=== PATIENT | male | born 1975 | race Caucasian/White ===

== ENCOUNTER 2022-09-05 11:43 | Emergency (ER) | payer MEDICAID ==
[2022-09-05 12:43] LABS: CHLORIDE,CL 106 mmol/L (98-107); SODIUM,NA 142 mmol/L (136-145)
[2022-09-05] MEDS: Ketorolac 30 MG/ML SDV IM ONE (12:46)
[2022-09-05 12:50] LABS: ANION GAP 15.6 mmol/L (5-15); ESTIMATED GFR 110 mL/min (>=60)
== END 2022-09-05 13:27 | disposition home or self-care (01) ==
LOC: VM.ED 11:43
DX: S29.012A Strain of muscle and tendon of back wall of thorax, initial encounter (principal); Z72.0 Tobacco use; Z88.5 Allergy status to narcotic agent; X58.XXXA Exposure to other specified factors, initial encounter
CPT/HCPCS: 36415; 72125; 72128; 80053; 80307; 83735; 84100; 85025; 96372; 99283; 99284; J1885; J3360

== ENCOUNTER 2023-03-13 15:27 | Emergency (ER) | payer MEDICAID ==
[2023-03-13] MEDS ORDERED: Ketorolac 30 MG/ML SDV IM ONE (15:41)
[2023-03-13] MEDS ORDERED: Orphenadrine 60 MG/2 ML Inj IM ONE (15:41)
== END 2023-03-13 16:45 | disposition home or self-care (01) ==
LOC: VM.ED 15:27 → SUPCPDRO 15:27 → VM.ED 16:45
DX: M62.830 Muscle spasm of back (principal); Z88.5 Allergy status to narcotic agent
CPT/HCPCS: 96372; 99283; 99284; J1885; J2360

== ENCOUNTER 2023-03-14 14:44 | Emergency (ER) | payer MEDICAID ==
[2023-03-14] MEDS ORDERED: Ketorolac 30 MG/ML SDV IM ONE (14:54)
[2023-03-14] MEDS ORDERED: Orphenadrine 60 MG/2 ML Inj IM ONE (14:54)
[2023-03-14 17:57] LABS: APPEARANCE,URINE CLEAR (CLEAR); BILIRUBIN,URINE NEGATIVE (NEGATIVE); COLOR,URINE YELLOW (YELLOW); GLUCOSE,URINE NEGATIVE (NEGATIVE); KETONES,URINE NEGATIVE (NEGATIVE); LEUKOCYTE ESTERASE,URINE SMALL (NEGATIVE); NITRITE,URINE NEGATIVE (NEGATIVE); OCCULT BLOOD,URINE NEGATIVE (NEGATIVE); PROTEIN,URINE NEGATIVE (NEGATIVE); UROBILINOGEN,URINE 0.2 EU/dL (0.2)
[2023-03-14 18:01] LABS: AMPHETAMINES SCREEN, URINE POSITIVE (NEGATIVE); BARBITURATE SCREEN,URINE NEGATIVE (NEGATIVE); BENZODIAZEPINES SCREEN,URINE NEGATIVE (NEGATIVE); BUPRENORPHINE SCREEN,URINE NEGATIVE (NEGATIVE); COCAINE METABOLITES,URINE NEGATIVE (NEGATIVE); METHADONE SCREEN, URINE NEGATIVE (NEGATIVE); METHAMPHETAMINE SCREEN, URINE POSITIVE (NEGATIVE); OXYCODONE SCREEN,URINE NEGATIVE (NEGATIVE); PCP SCREEN,URINE NEGATIVE (NEGATIVE); THC SCREEN,URINE 50 NG/ML POSITIVE (NEGATIVE)
[2023-03-14 18:04] LABS: RBC,URINE 0-5 /HPF (NOT SEEN)
[2023-03-14 18:05] LABS: BACTERIA,URINE RARE /HPF (NOT SEEN); MUCUS,URINE FEW /LPF (NOT SEEN)
== END 2023-03-14 18:14 | disposition home or self-care (01) ==
LOC: VM.ED 14:44
DX: M62.830 Muscle spasm of back (principal); Z72.0 Tobacco use
CPT/HCPCS: 72072; 80305-QW; 81001; 87086; 96372; 99283; 99284; J1885; J2360; J3360

== ENCOUNTER 2023-03-17 03:55 | Emergency (ER) | payer MEDICAID ==
[2023-03-17] MEDS ORDERED: Sodium Chloride 0.9% 10 ML Syringe FLUSH PRN (04:07)
[2023-03-17] MEDS ORDERED: Ketamine 200 MG/20 ML MDV IM ONE (04:07)
[2023-03-17] MEDS ORDERED: Ketorolac 15 MG/ML SDV IVPUSH ONE (04:18)
[2023-03-17] MEDS ORDERED: Ketamine 200 MG/20 ML MDV IVPUSH ONE ×3 (06:53→07:02)
== END 2023-03-17 07:09 | disposition home or self-care (01) ==
LOC: VM.ED 03:55
DX: M43.6 Torticollis (principal); M54.2 Cervicalgia; G89.29 Other chronic pain; F17.210 Nicotine dependence, cigarettes, uncomplicated; Z79.899 Other long term (current) drug therapy; Z88.5 Allergy status to narcotic agent
CPT/HCPCS: 72125; 96374; 96375; 96376; 99283-25; 99284; J1885; J3490

== ENCOUNTER 2023-03-18 04:30 | Emergency (ER) | payer MEDICAID ==
[2023-03-18] MEDS ORDERED: Ketorolac 30 MG/ML SDV IM ONE (05:29)
== END 2023-03-18 07:50 | disposition home or self-care (01) ==
LOC: SUPCPDRO 04:30 → VM.ED 04:30
DX: R33.9 Retention of urine, unspecified (principal); Z88.5 Allergy status to narcotic agent; Z72.0 Tobacco use
CPT/HCPCS: 51702; 96372; 99283; 99284; J1885; J3360

== ENCOUNTER 2023-03-29 14:46 | Inpatient (IN) | payer MEDICAID ==
[2023-03-29] MEDS ORDERED: Cyclobenzaprine 10 MG Tab PO PRN (20:47)
[2023-03-29] MEDS ORDERED: Lidocaine 2% HCl 11 ML Jelly Filled Syringe TOP PRN (20:47)
[2023-03-29] MEDS ORDERED: Albuterol HFA 18 Gm Inhaler INH PRN (20:47)
[2023-03-29] MEDS ORDERED: Mupirocin Oint 22 GM Tube TOP SCH (21:00)
[2023-03-29] MEDS ORDERED: Acetaminophen 325 MG Tab PO SCH ×2 (21:00)
[2023-03-29] MEDS ORDERED: traMADol 50 MG Tab PO SCH (21:00)
[2023-03-29] MEDS ORDERED: Magnesium Hydroxide 400 MG/5 ML Susp 30 ML Cup PO PRN (21:25)
[2023-03-29] MEDS ORDERED: Docusate Sodium 100 MG Cap PO PRN (21:25)
[2023-03-29] MEDS ORDERED: Ondansetron 4 MG Tab.DIS PO PRN (21:25)
[2023-03-29] MEDS: Cyclobenzaprine 10 MG Tab PO SCH (21:35)
[2023-03-29] MEDS ORDERED: Mupirocin Oint 22 GM Tube TOP PRN (21:46)
[2023-03-29] MEDS: ceFAZolin 2 GM in Water For Injection, Sterile 20 ML IVPUSH SCH (22:50)
[2023-03-29] MEDS: traMADol 50 MG Tab PO SCH (23:00)
[2023-03-29] MEDS: Acetaminophen 500 MG Tab PO SCH (23:02)
[2023-03-29] MEDS: Heparin Sodium 100 Units/ML 3 ML Syringe IVPUSH SCH (23:05)
[2023-03-30] MEDS: oxyCODONE 5 MG Tab PO PRN ×2 (00:27→07:00)
[2023-03-30] MEDS ORDERED: Non-Formulary Medication 1 Each (Cefazolin [Ancef] 2 GM/50 ML Bag) IV SCH (01:00)
[2023-03-30] MEDS: Acetaminophen 500 MG Tab PO SCH ×4 (05:30→17:39)
[2023-03-30] MEDS: traMADol 50 MG Tab PO SCH ×3 (05:32→17:42)
[2023-03-30] MEDS: ceFAZolin 2 GM in Water For Injection, Sterile 20 ML IVPUSH SCH (05:35)
[2023-03-30] MEDS: DULoxetine 30 MG Cap PO SCH (09:35)
[2023-03-30] MEDS: Pantoprazole 40 MG Tab.CR PO SCH (09:36)
[2023-03-30] MEDS: Tamsulosin 0.4 MG Cap.ER PO SCH (09:36)
[2023-03-30] MEDS: Cyclobenzaprine 10 MG Tab PO SCH ×3 (09:37→21:21)
[2023-03-30] MEDS: Heparin Sodium 100 Units/ML 3 ML Syringe IVPUSH SCH ×2 (09:40→21:22)
[2023-03-30] MEDS: hydrOXYzine HCl 25 MG Tab PO PRN (10:33)
[2023-03-30] MEDS: ceFAZolin 2 GM Vial IVPUSH SCH ×2 (12:56→21:23)
[2023-03-31] MEDS: traMADol 50 MG Tab PO SCH ×5 (00:16→23:50)
[2023-03-31] MEDS: Acetaminophen 500 MG Tab PO SCH ×5 (00:16→23:50)
[2023-03-31] MEDS: ceFAZolin 2 GM Vial IVPUSH SCH ×3 (05:26→21:21)
[2023-03-31] MEDS: Heparin Sodium 100 Units/ML 3 ML Syringe IVPUSH PRN (05:43)
[2023-03-31] MEDS: Cyclobenzaprine 10 MG Tab PO SCH ×3 (09:30→21:22)
[2023-03-31] MEDS: DULoxetine 30 MG Cap PO SCH (09:30)
[2023-03-31] MEDS: Pantoprazole 40 MG Tab.CR PO SCH (09:30)
[2023-03-31] MEDS: Tamsulosin 0.4 MG Cap.ER PO SCH (09:30)
[2023-03-31] MEDS: Heparin Sodium 100 Units/ML 3 ML Syringe IVPUSH SCH ×3 (09:31→21:22)
[2023-03-31] MEDS: Mupirocin Oint 22 GM Tube TOP PRN (21:40)
[2023-04-01] MEDS: traMADol 50 MG Tab PO SCH ×3 (05:33→17:48)
[2023-04-01] MEDS: Acetaminophen 500 MG Tab PO SCH ×3 (05:34→17:47)
[2023-04-01] MEDS: ceFAZolin 2 GM Vial IVPUSH SCH ×3 (05:34→21:17)
[2023-04-01] MEDS: Heparin Sodium 100 Units/ML 3 ML Syringe IVPUSH SCH ×3 (05:34→21:17)
[2023-04-01] MEDS: Cyclobenzaprine 10 MG Tab PO SCH ×3 (08:44→21:14)
[2023-04-01] MEDS: Tamsulosin 0.4 MG Cap.ER PO SCH (08:45)
[2023-04-01] MEDS: Pantoprazole 40 MG Tab.CR PO SCH (08:45)
[2023-04-01] MEDS: DULoxetine 30 MG Cap PO SCH (08:46)
[2023-04-02] MEDS: traMADol 50 MG Tab PO SCH ×4 (00:11→17:44)
[2023-04-02] MEDS: Acetaminophen 500 MG Tab PO SCH ×4 (00:11→17:45)
[2023-04-02] MEDS: Sodium Chloride 0.9% 10 ML Syringe FLUSH SCH ×3 (05:32→20:58)
[2023-04-02] MEDS: Heparin Sodium 100 Units/ML 3 ML Syringe IVPUSH SCH ×3 (05:32→20:59)
[2023-04-02] MEDS: ceFAZolin 2 GM Vial IVPUSH SCH ×3 (05:32→20:59)
[2023-04-02] MEDS: Cyclobenzaprine 10 MG Tab PO SCH ×3 (08:58→20:57)
[2023-04-02] MEDS: DULoxetine 30 MG Cap PO SCH (08:58)
[2023-04-02] MEDS: Pantoprazole 40 MG Tab.CR PO SCH (08:58)
[2023-04-02] MEDS: Tamsulosin 0.4 MG Cap.ER PO SCH (08:58)
[2023-04-02] MEDS: hydrOXYzine HCl 25 MG Tab PO PRN (09:03)
[2023-04-03] MEDS: traMADol 50 MG Tab PO SCH ×5 (00:19→23:26)
[2023-04-03] MEDS: Acetaminophen 500 MG Tab PO SCH ×5 (00:19→23:28)
[2023-04-03] MEDS: Heparin Sodium 100 Units/ML 3 ML Syringe IVPUSH SCH ×3 (05:34→21:07)
[2023-04-03] MEDS: ceFAZolin 2 GM Vial IVPUSH SCH ×3 (05:34→21:06)
[2023-04-03] MEDS: Sodium Chloride 0.9% 10 ML Syringe FLUSH SCH ×3 (05:35→21:07)
[2023-04-03 07:19] LABS: HEMATOCRIT 38.4 % (40.0-52.0); HEMOGLOBIN 12.9 g/dL (14.0-18.0); MEAN CORPUSCULAR HEMOGLOBIN 31.5 pg (26.0-32.0); MEAN CORPUSCULAR HGB CONC 33.6 g/dL (32.0-36.0); MEAN CORPUSCULAR VOLUME 93.9 fL (78.0-93.0); RED BLOOD CELL COUNT 4.09 x10^6/uL (4.5-6.0); WHITE BLOOD CELL COUNT,WBC 7.4 x10^3/uL (4.0-10.0)
[2023-04-03 07:40] LABS: C-REACTIVE PROTEIN 0.73 mg/dL (<=0.30); CREATININE 0.9 mg/dL (0.70-1.30); EST CRCL DRUG DOSING (CG) 111.37 mL/min
[2023-04-03] MEDS: DULoxetine 30 MG Cap PO SCH (08:26)
[2023-04-03] MEDS: Pantoprazole 40 MG Tab.CR PO SCH (08:26)
[2023-04-03] MEDS: Cyclobenzaprine 10 MG Tab PO SCH ×3 (08:27→21:06)
[2023-04-03] MEDS: Tamsulosin 0.4 MG Cap.ER PO SCH (08:30)
[2023-04-04] MEDS: Acetaminophen 500 MG Tab PO SCH ×4 (05:34→23:22)
[2023-04-04] MEDS: Heparin Sodium 100 Units/ML 3 ML Syringe IVPUSH SCH ×3 (05:34→21:09)
[2023-04-04] MEDS: traMADol 50 MG Tab PO SCH ×4 (05:34→23:22)
[2023-04-04] MEDS: Sodium Chloride 0.9% 10 ML Syringe FLUSH SCH ×3 (05:35→21:10)
[2023-04-04] MEDS: ceFAZolin 2 GM Vial IVPUSH SCH ×3 (05:35→21:09)
[2023-04-04] MEDS: Pantoprazole 40 MG Tab.CR PO SCH (09:00)
[2023-04-04] MEDS: Tamsulosin 0.4 MG Cap.ER PO SCH (09:00)
[2023-04-04] MEDS: DULoxetine 30 MG Cap PO SCH (09:00)
[2023-04-04] MEDS: Cyclobenzaprine 10 MG Tab PO SCH ×3 (09:00→21:09)
[2023-04-04] MEDS: oxyCODONE 5 MG Tab PO PRN (21:42)
[2023-04-05] MEDS: Sodium Chloride 0.9% 10 ML Syringe FLUSH SCH ×3 (05:41→20:56)
[2023-04-05] MEDS: ceFAZolin 2 GM Vial IVPUSH SCH ×3 (05:42→20:46)
[2023-04-05] MEDS: Acetaminophen 500 MG Tab PO SCH ×3 (05:42→17:40)
[2023-04-05] MEDS: traMADol 50 MG Tab PO SCH ×3 (05:42→17:40)
[2023-04-05] MEDS: Heparin Sodium 100 Units/ML 3 ML Syringe IVPUSH SCH ×3 (05:42→20:47)
[2023-04-05] MEDS: Tamsulosin 0.4 MG Cap.ER PO SCH ×2 (08:50→08:53)
[2023-04-05] MEDS: Pantoprazole 40 MG Tab.CR PO SCH (08:50)
[2023-04-05] MEDS: DULoxetine 30 MG Cap PO SCH (08:50)
[2023-04-05] MEDS: Cyclobenzaprine 10 MG Tab PO SCH ×3 (08:50→20:46)
[2023-04-06] MEDS: traMADol 50 MG Tab PO SCH ×5 (00:20→23:31)
[2023-04-06] MEDS: Acetaminophen 500 MG Tab PO SCH ×5 (00:20→23:30)
[2023-04-06] MEDS: ceFAZolin 2 GM Vial IVPUSH SCH ×3 (05:25→21:09)
[2023-04-06] MEDS: Heparin Sodium 100 Units/ML 3 ML Syringe IVPUSH SCH ×3 (05:26→21:10)
[2023-04-06] MEDS: Sodium Chloride 0.9% 10 ML Syringe FLUSH SCH ×3 (05:27→21:10)
[2023-04-06] MEDS: Pantoprazole 40 MG Tab.CR PO SCH (08:40)
[2023-04-06] MEDS: Tamsulosin 0.4 MG Cap.ER PO SCH (08:40)
[2023-04-06] MEDS: DULoxetine 30 MG Cap PO SCH (08:40)
[2023-04-06] MEDS: Cyclobenzaprine 10 MG Tab PO SCH ×3 (08:40→21:09)
[2023-04-07] MEDS: Acetaminophen 500 MG Tab PO SCH ×4 (05:24→23:27)
[2023-04-07] MEDS: Sodium Chloride 0.9% 10 ML Syringe FLUSH SCH ×3 (05:25→20:49)
[2023-04-07] MEDS: ceFAZolin 2 GM Vial IVPUSH SCH ×3 (05:25→20:43)
[2023-04-07] MEDS: Heparin Sodium 100 Units/ML 3 ML Syringe IVPUSH SCH ×3 (05:25→20:51)
[2023-04-07] MEDS: traMADol 50 MG Tab PO SCH ×4 (05:25→23:29)
[2023-04-07] MEDS: DULoxetine 30 MG Cap PO SCH (08:28)
[2023-04-07] MEDS: Cyclobenzaprine 10 MG Tab PO SCH ×3 (08:28→20:40)
[2023-04-07] MEDS: Tamsulosin 0.4 MG Cap.ER PO SCH (08:28)
[2023-04-07] MEDS: Pantoprazole 40 MG Tab.CR PO SCH (08:28)
[2023-04-07] MEDS: hydrOXYzine HCl 25 MG Tab PO PRN (08:32)
[2023-04-08] MEDS: Acetaminophen 500 MG Tab PO SCH ×4 (05:38→23:02)
[2023-04-08] MEDS: traMADol 50 MG Tab PO SCH ×4 (05:40→23:03)
[2023-04-08] MEDS: ceFAZolin 2 GM Vial IVPUSH SCH ×3 (05:41→20:52)
[2023-04-08] MEDS: Sodium Chloride 0.9% 10 ML Syringe FLUSH SCH ×3 (05:42→20:51)
[2023-04-08] MEDS: Heparin Sodium 100 Units/ML 3 ML Syringe IVPUSH SCH ×3 (05:49→20:58)
[2023-04-08] MEDS: Cyclobenzaprine 10 MG Tab PO SCH ×3 (09:02→20:49)
[2023-04-08] MEDS: Tamsulosin 0.4 MG Cap.ER PO SCH (09:02)
[2023-04-08] MEDS: DULoxetine 30 MG Cap PO SCH (09:03)
[2023-04-08] MEDS: Pantoprazole 40 MG Tab.CR PO SCH (09:03)
[2023-04-09] MEDS: traMADol 50 MG Tab PO SCH ×4 (05:49→23:55)
[2023-04-09] MEDS: Acetaminophen 500 MG Tab PO SCH ×4 (05:50→23:54)
[2023-04-09] MEDS: Sodium Chloride 0.9% 10 ML Syringe FLUSH SCH ×3 (05:51→21:46)
[2023-04-09] MEDS: ceFAZolin 2 GM Vial IVPUSH SCH ×3 (05:51→21:45)
[2023-04-09] MEDS: Heparin Sodium 100 Units/ML 3 ML Syringe IVPUSH SCH ×3 (05:51→21:45)
[2023-04-09] MEDS: DULoxetine 30 MG Cap PO SCH (08:06)
[2023-04-09] MEDS: Tamsulosin 0.4 MG Cap.ER PO SCH (08:07)
[2023-04-09] MEDS: Pantoprazole 40 MG Tab.CR PO SCH (08:07)
[2023-04-09] MEDS: Cyclobenzaprine 10 MG Tab PO SCH ×3 (08:08→21:45)
[2023-04-10] MEDS: Acetaminophen 500 MG Tab PO SCH ×3 (05:17→17:31)
[2023-04-10] MEDS: Heparin Sodium 100 Units/ML 3 ML Syringe IVPUSH SCH ×3 (05:17→20:23)
[2023-04-10] MEDS: ceFAZolin 2 GM Vial IVPUSH SCH ×3 (05:17→20:18)
[2023-04-10] MEDS: traMADol 50 MG Tab PO SCH ×3 (05:18→17:33)
[2023-04-10] MEDS: Sodium Chloride 0.9% 10 ML Syringe FLUSH SCH ×3 (05:18→20:18)
[2023-04-10] MEDS: Pantoprazole 40 MG Tab.CR PO SCH (08:19)
[2023-04-10] MEDS: Tamsulosin 0.4 MG Cap.ER PO SCH (08:19)
[2023-04-10] MEDS: Cyclobenzaprine 10 MG Tab PO SCH ×3 (08:20→20:25)
[2023-04-10] MEDS: DULoxetine 30 MG Cap PO SCH (08:20)
[2023-04-10 09:29] LABS: HEMATOCRIT 37.5 % (40.0-52.0); HEMOGLOBIN 12.5 g/dL (14.0-18.0); MEAN CORPUSCULAR HEMOGLOBIN 31.4 pg (26.0-32.0); MEAN CORPUSCULAR HGB CONC 33.3 g/dL (32.0-36.0); MEAN CORPUSCULAR VOLUME 94.2 fL (78.0-93.0); RED BLOOD CELL COUNT 3.98 x10^6/uL (4.5-6.0); WHITE BLOOD CELL COUNT,WBC 6.8 x10^3/uL (4.0-10.0)
[2023-04-10 09:45] LABS: C-REACTIVE PROTEIN 0.34 mg/dL (<=0.30); CREATININE 0.8 mg/dL (0.70-1.30); EST CRCL DRUG DOSING (CG) 125.29 mL/min
[2023-04-11] MEDS: Acetaminophen 500 MG Tab PO SCH ×4 (00:13→17:29)
[2023-04-11] MEDS: traMADol 50 MG Tab PO SCH ×4 (00:13→17:29)
[2023-04-11] MEDS: ceFAZolin 2 GM Vial IVPUSH SCH ×3 (05:43→21:29)
[2023-04-11] MEDS: Sodium Chloride 0.9% 10 ML Syringe FLUSH SCH ×3 (05:43→21:28)
[2023-04-11] MEDS: Heparin Sodium 100 Units/ML 3 ML Syringe IVPUSH SCH ×3 (05:49→21:34)
[2023-04-11] MEDS: Tamsulosin 0.4 MG Cap.ER PO SCH (08:37)
[2023-04-11] MEDS: DULoxetine 30 MG Cap PO SCH (08:37)
[2023-04-11] MEDS: Cyclobenzaprine 10 MG Tab PO SCH ×3 (08:37→21:25)
[2023-04-11] MEDS: Pantoprazole 40 MG Tab.CR PO SCH (08:37)
[2023-04-12] MEDS: Acetaminophen 500 MG Tab PO SCH ×4 (00:02→17:48)
[2023-04-12] MEDS: traMADol 50 MG Tab PO SCH ×4 (00:03→17:47)
[2023-04-12] MEDS: Sodium Chloride 0.9% 10 ML Syringe FLUSH SCH ×3 (05:39→20:45)
[2023-04-12] MEDS: ceFAZolin 2 GM Vial IVPUSH SCH ×3 (05:40→20:44)
[2023-04-12] MEDS: Heparin Sodium 100 Units/ML 3 ML Syringe IVPUSH SCH ×3 (05:47→20:50)
[2023-04-12] MEDS: Pantoprazole 40 MG Tab.CR PO SCH (08:45)
[2023-04-12] MEDS: DULoxetine 30 MG Cap PO SCH (08:45)
[2023-04-12] MEDS: Cyclobenzaprine 10 MG Tab PO SCH ×3 (08:45→20:43)
[2023-04-12] MEDS: Tamsulosin 0.4 MG Cap.ER PO SCH (08:45)
[2023-04-12 19:09] LABS: AMPHETAMINES SCREEN, URINE NEGATIVE (NEGATIVE); BARBITURATE SCREEN,URINE NEGATIVE (NEGATIVE)
[2023-04-12 19:10] LABS: BENZODIAZEPINES SCREEN,URINE NEGATIVE (NEGATIVE); BUPRENORPHINE SCREEN,URINE NEGATIVE (NEGATIVE); COCAINE METABOLITES,URINE NEGATIVE (NEGATIVE); METHADONE SCREEN, URINE NEGATIVE (NEGATIVE); METHAMPHETAMINE SCREEN, URINE NEGATIVE (NEGATIVE); OXYCODONE SCREEN,URINE NEGATIVE (NEGATIVE); PCP SCREEN,URINE NEGATIVE (NEGATIVE); THC SCREEN,URINE 50 NG/ML POSITIVE (NEGATIVE)
[2023-04-12] MEDS: hydrOXYzine HCl 25 MG Tab PO PRN (20:44)
[2023-04-12] MEDS: Mupirocin Oint 22 GM Tube TOP PRN (20:56)
[2023-04-13] MEDS: traMADol 50 MG Tab PO SCH ×4 (00:32→17:59)
[2023-04-13] MEDS: Acetaminophen 500 MG Tab PO SCH ×4 (00:32→17:59)
[2023-04-13] MEDS: ceFAZolin 2 GM Vial IVPUSH SCH ×3 (05:42→21:52)
[2023-04-13] MEDS: Heparin Sodium 100 Units/ML 3 ML Syringe IVPUSH SCH ×3 (05:46→21:52)
[2023-04-13] MEDS: Sodium Chloride 0.9% 10 ML Syringe FLUSH SCH ×4 (05:46→21:53)
[2023-04-13] MEDS: Pantoprazole 40 MG Tab.CR PO SCH (08:14)
[2023-04-13] MEDS: Cyclobenzaprine 10 MG Tab PO SCH ×3 (08:14→21:50)
[2023-04-13] MEDS: DULoxetine 30 MG Cap PO SCH (08:14)
[2023-04-13] MEDS: Tamsulosin 0.4 MG Cap.ER PO SCH (08:14)
[2023-04-14] MEDS: traMADol 50 MG Tab PO SCH ×5 (01:16→23:22)
[2023-04-14] MEDS: Acetaminophen 500 MG Tab PO SCH ×5 (01:16→23:22)
[2023-04-14] MEDS: ceFAZolin 2 GM Vial IVPUSH SCH ×3 (05:46→21:13)
[2023-04-14] MEDS: Sodium Chloride 0.9% 10 ML Syringe FLUSH SCH ×3 (05:46→21:14)
[2023-04-14] MEDS: Heparin Sodium 100 Units/ML 3 ML Syringe IVPUSH SCH ×3 (05:47→21:14)
[2023-04-14] MEDS: Pantoprazole 40 MG Tab.CR PO SCH (08:14)
[2023-04-14] MEDS: DULoxetine 30 MG Cap PO SCH (08:14)
[2023-04-14] MEDS: Cyclobenzaprine 10 MG Tab PO SCH ×3 (08:14→21:13)
[2023-04-14] MEDS: Tamsulosin 0.4 MG Cap.ER PO SCH (08:14)
[2023-04-14] MEDS: Mupirocin Oint 22 GM Tube TOP PRN (08:16)
[2023-04-15] MEDS: ceFAZolin 2 GM Vial IVPUSH SCH ×3 (05:31→21:07)
[2023-04-15] MEDS: Sodium Chloride 0.9% 10 ML Syringe FLUSH SCH ×3 (05:31→21:08)
[2023-04-15] MEDS: Acetaminophen 500 MG Tab PO SCH ×4 (05:32→23:52)
[2023-04-15] MEDS: Heparin Sodium 100 Units/ML 3 ML Syringe IVPUSH SCH ×3 (05:32→21:07)
[2023-04-15] MEDS: traMADol 50 MG Tab PO SCH ×4 (05:32→23:50)
[2023-04-15] MEDS: Tamsulosin 0.4 MG Cap.ER PO SCH (09:07)
[2023-04-15] MEDS: Cyclobenzaprine 10 MG Tab PO SCH ×3 (09:07→21:08)
[2023-04-15] MEDS: DULoxetine 30 MG Cap PO SCH (09:08)
[2023-04-15] MEDS: Pantoprazole 40 MG Tab.CR PO SCH (09:08)
[2023-04-16] MEDS: ceFAZolin 2 GM Vial IVPUSH SCH ×3 (05:56→21:00)
[2023-04-16] MEDS: Acetaminophen 500 MG Tab PO SCH ×4 (05:56→23:53)
[2023-04-16] MEDS: Heparin Sodium 100 Units/ML 3 ML Syringe IVPUSH SCH ×3 (05:56→20:49)
[2023-04-16] MEDS: traMADol 50 MG Tab PO SCH ×4 (05:57→23:53)
[2023-04-16] MEDS: Sodium Chloride 0.9% 10 ML Syringe FLUSH SCH ×3 (05:58→20:50)
[2023-04-16] MEDS: Sodium Chloride 0.9% 10 ML Syringe FLUSH PRN ×2 (06:06→12:42)
[2023-04-16] MEDS: Cyclobenzaprine 10 MG Tab PO SCH ×3 (08:51→20:49)
[2023-04-16] MEDS: DULoxetine 30 MG Cap PO SCH (08:51)
[2023-04-16] MEDS: Tamsulosin 0.4 MG Cap.ER PO SCH (08:51)
[2023-04-16] MEDS: Pantoprazole 40 MG Tab.CR PO SCH (08:51)
[2023-04-17] MEDS: Acetaminophen 500 MG Tab PO SCH ×4 (05:59→23:02)
[2023-04-17] MEDS: traMADol 50 MG Tab PO SCH ×4 (06:00→23:02)
[2023-04-17] MEDS: ceFAZolin 2 GM Vial IVPUSH SCH ×3 (06:01→21:37)
[2023-04-17] MEDS: Heparin Sodium 100 Units/ML 3 ML Syringe IVPUSH SCH ×3 (06:01→21:37)
[2023-04-17] MEDS: Sodium Chloride 0.9% 10 ML Syringe FLUSH SCH ×3 (06:01→21:37)
[2023-04-17 07:04] LABS: HEMATOCRIT 42.4 % (40.0-52.0); HEMOGLOBIN 13.6 g/dL (14.0-18.0); MEAN CORPUSCULAR HEMOGLOBIN 30.2 pg (26.0-32.0); MEAN CORPUSCULAR HGB CONC 32.1 g/dL (32.0-36.0); MEAN CORPUSCULAR VOLUME 94.2 fL (78.0-93.0); RED BLOOD CELL COUNT 4.5 x10^6/uL (4.5-6.0); WHITE BLOOD CELL COUNT,WBC 5.2 x10^3/uL (4.0-10.0)
[2023-04-17 07:27] LABS: C-REACTIVE PROTEIN 0.32 mg/dL (<=0.30); CREATININE 0.9 mg/dL (0.70-1.30); EST CRCL DRUG DOSING (CG) 111.37 mL/min
[2023-04-17] MEDS: Pantoprazole 40 MG Tab.CR PO SCH (08:38)
[2023-04-17] MEDS: Cyclobenzaprine 10 MG Tab PO SCH ×3 (08:38→21:35)
[2023-04-17] MEDS: DULoxetine 30 MG Cap PO SCH (08:38)
[2023-04-17] MEDS: Tamsulosin 0.4 MG Cap.ER PO SCH (09:46)
[2023-04-17] MEDS: Sodium Chloride 0.9% 10 ML Syringe FLUSH PRN (21:39)
[2023-04-18] MEDS: traMADol 50 MG Tab PO SCH ×3 (05:57→18:30)
[2023-04-18] MEDS: Acetaminophen 500 MG Tab PO SCH ×3 (05:57→18:29)
[2023-04-18] MEDS: Heparin Sodium 100 Units/ML 3 ML Syringe IVPUSH SCH ×3 (05:58→21:12)
[2023-04-18] MEDS: Sodium Chloride 0.9% 10 ML Syringe FLUSH SCH ×3 (05:58→21:13)
[2023-04-18] MEDS: ceFAZolin 2 GM Vial IVPUSH SCH ×3 (05:58→21:11)
[2023-04-18] MEDS: Cyclobenzaprine 10 MG Tab PO SCH ×3 (08:11→21:11)
[2023-04-18] MEDS: Pantoprazole 40 MG Tab.CR PO SCH (08:12)
[2023-04-18] MEDS: Tamsulosin 0.4 MG Cap.ER PO SCH (08:12)
[2023-04-18] MEDS: DULoxetine 30 MG Cap PO SCH (08:12)
[2023-04-19] MEDS: Acetaminophen 500 MG Tab PO SCH ×5 (00:16→18:42)
[2023-04-19] MEDS: traMADol 50 MG Tab PO SCH ×5 (00:17→18:42)
[2023-04-19] MEDS: ceFAZolin 2 GM Vial IVPUSH SCH ×3 (04:07→21:08)
[2023-04-19] MEDS: Heparin Sodium 100 Units/ML 3 ML Syringe IVPUSH SCH ×3 (04:07→21:08)
[2023-04-19] MEDS: Sodium Chloride 0.9% 10 ML Syringe FLUSH SCH ×3 (04:07→21:08)
[2023-04-19] MEDS: DULoxetine 30 MG Cap PO SCH (09:51)
[2023-04-19] MEDS: Cyclobenzaprine 10 MG Tab PO SCH ×2 (09:52→13:30)
[2023-04-19] MEDS: Pantoprazole 40 MG Tab.CR PO SCH (09:52)
[2023-04-19] MEDS: Tamsulosin 0.4 MG Cap.ER PO SCH (09:52)
[2023-04-19] MEDS: traMADol 50 MG Tab PO PRN (18:44)
[2023-04-19] MEDS: Acetaminophen 500 MG Tab PO PRN (21:07)
[2023-04-19] MEDS: Cyclobenzaprine 10 MG Tab PO PRN (21:07)
[2023-04-20] MEDS: Acetaminophen 500 MG Tab PO PRN ×3 (05:34→21:03)
[2023-04-20] MEDS: Sodium Chloride 0.9% 10 ML Syringe FLUSH SCH ×3 (05:34→21:01)
[2023-04-20] MEDS: ceFAZolin 2 GM Vial IVPUSH SCH ×3 (05:34→21:01)
[2023-04-20] MEDS: Heparin Sodium 100 Units/ML 3 ML Syringe IVPUSH SCH ×3 (05:35→21:03)
[2023-04-20] MEDS: traMADol 50 MG Tab PO PRN ×2 (05:35→21:02)
[2023-04-20] MEDS: Tamsulosin 0.4 MG Cap.ER PO SCH (08:50)
[2023-04-20] MEDS: DULoxetine 30 MG Cap PO SCH (08:50)
[2023-04-20] MEDS: Pantoprazole 40 MG Tab.CR PO SCH (08:50)
[2023-04-20] MEDS: Cyclobenzaprine 10 MG Tab PO PRN ×2 (13:16→21:02)
[2023-04-20] MEDS: hydrOXYzine HCl 25 MG Tab PO PRN (23:26)
[2023-04-21] MEDS: ceFAZolin 2 GM Vial IVPUSH SCH ×3 (05:37→22:00)
[2023-04-21] MEDS: Heparin Sodium 100 Units/ML 3 ML Syringe IVPUSH SCH ×3 (05:38→22:00)
[2023-04-21] MEDS: Sodium Chloride 0.9% 10 ML Syringe FLUSH SCH ×3 (05:41→22:00)
[2023-04-21] MEDS: Pantoprazole 40 MG Tab.CR PO SCH (08:47)
[2023-04-21] MEDS: DULoxetine 30 MG Cap PO SCH (08:47)
[2023-04-21] MEDS: Tamsulosin 0.4 MG Cap.ER PO SCH (08:47)
[2023-04-21] MEDS: traMADol 50 MG Tab PO PRN ×2 (08:47→22:13)
[2023-04-21] MEDS: Acetaminophen 500 MG Tab PO PRN (12:44)
[2023-04-21] MEDS: Cyclobenzaprine 10 MG Tab PO PRN ×2 (12:44→22:09)
[2023-04-21] MEDS: Sodium Chloride 0.9% 10 ML Syringe FLUSH PRN (22:07)
[2023-04-22] MEDS: Sodium Chloride 0.9% 10 ML Syringe FLUSH SCH ×3 (05:51→21:23)
[2023-04-22] MEDS: ceFAZolin 2 GM Vial IVPUSH SCH ×3 (05:51→21:23)
[2023-04-22] MEDS: Heparin Sodium 100 Units/ML 3 ML Syringe IVPUSH SCH ×3 (05:51→21:23)
[2023-04-22] MEDS: Sodium Chloride 0.9% 10 ML Syringe FLUSH PRN ×2 (05:52→21:24)
[2023-04-22] MEDS: Cyclobenzaprine 10 MG Tab PO PRN ×3 (05:59→22:46)
[2023-04-22] MEDS: DULoxetine 30 MG Cap PO SCH (08:58)
[2023-04-22] MEDS: Pantoprazole 40 MG Tab.CR PO SCH (08:58)
[2023-04-22] MEDS: Tamsulosin 0.4 MG Cap.ER PO SCH (08:58)
[2023-04-22] MEDS: Acetaminophen 500 MG Tab PO PRN (12:36)
[2023-04-22] MEDS: traMADol 50 MG Tab PO PRN ×2 (14:05→21:22)
[2023-04-22] MEDS: hydrOXYzine HCl 25 MG Tab PO PRN (22:46)
[2023-04-23] MEDS: Cyclobenzaprine 10 MG Tab PO PRN ×2 (05:53→20:35)
[2023-04-23] MEDS: ceFAZolin 2 GM Vial IVPUSH SCH ×3 (05:53→20:37)
[2023-04-23] MEDS: Heparin Sodium 100 Units/ML 3 ML Syringe IVPUSH SCH ×3 (05:53→20:37)
[2023-04-23] MEDS: Sodium Chloride 0.9% 10 ML Syringe FLUSH PRN (05:55)
[2023-04-23] MEDS: Sodium Chloride 0.9% 10 ML Syringe FLUSH SCH ×3 (05:55→20:37)
[2023-04-23] MEDS: DULoxetine 30 MG Cap PO SCH (08:36)
[2023-04-23] MEDS: Pantoprazole 40 MG Tab.CR PO SCH (08:36)
[2023-04-23] MEDS: Tamsulosin 0.4 MG Cap.ER PO SCH (08:36)
[2023-04-23] MEDS: Acetaminophen 500 MG Tab PO PRN (13:00)
[2023-04-24] MEDS: Heparin Sodium 100 Units/ML 3 ML Syringe IVPUSH SCH ×3 (05:49→20:50)
[2023-04-24] MEDS: ceFAZolin 2 GM Vial IVPUSH SCH ×3 (05:49→20:50)
[2023-04-24] MEDS: Sodium Chloride 0.9% 10 ML Syringe FLUSH SCH ×3 (05:50→20:50)
[2023-04-24] MEDS: Sodium Chloride 0.9% 10 ML Syringe FLUSH PRN ×2 (05:52→20:51)
[2023-04-24] MEDS: Cyclobenzaprine 10 MG Tab PO PRN ×3 (05:57→20:48)
[2023-04-24] MEDS: Heparin Sodium 100 Units/ML 3 ML Syringe IVPUSH PRN (06:45)
[2023-04-24 07:05] LABS: HEMATOCRIT 43.3 % (40.0-52.0); HEMOGLOBIN 14.3 g/dL (14.0-18.0); MEAN CORPUSCULAR HEMOGLOBIN 30.8 pg (26.0-32.0); MEAN CORPUSCULAR VOLUME 93.3 fL (78.0-93.0); RED BLOOD CELL COUNT 4.64 x10^6/uL (4.5-6.0); WHITE BLOOD CELL COUNT,WBC 6.7 x10^3/uL (4.0-10.0)
[2023-04-24 07:26] LABS: C-REACTIVE PROTEIN 0.28 mg/dL (<=0.30); CREATININE 0.8 mg/dL (0.70-1.30); EST CRCL DRUG DOSING (CG) 125.29 mL/min
[2023-04-24] MEDS: Tamsulosin 0.4 MG Cap.ER PO SCH (08:18)
[2023-04-24] MEDS: DULoxetine 30 MG Cap PO SCH (08:18)
[2023-04-24] MEDS: Pantoprazole 40 MG Tab.CR PO SCH (08:18)
[2023-04-24] MEDS: traMADol 50 MG Tab PO PRN (20:49)
[2023-04-25] MEDS: Cyclobenzaprine 10 MG Tab PO PRN ×3 (05:39→22:10)
[2023-04-25] MEDS: Heparin Sodium 100 Units/ML 3 ML Syringe IVPUSH SCH ×3 (05:40→20:29)
[2023-04-25] MEDS: ceFAZolin 2 GM Vial IVPUSH SCH ×3 (05:40→20:29)
[2023-04-25] MEDS: Sodium Chloride 0.9% 10 ML Syringe FLUSH SCH ×3 (05:41→20:29)
[2023-04-25] MEDS: Sodium Chloride 0.9% 10 ML Syringe FLUSH PRN ×2 (05:41→20:30)
[2023-04-25] MEDS: Pantoprazole 40 MG Tab.CR PO SCH (08:31)
[2023-04-25] MEDS: Tamsulosin 0.4 MG Cap.ER PO SCH (08:31)
[2023-04-25] MEDS: DULoxetine 30 MG Cap PO SCH (08:31)
[2023-04-25] MEDS: traMADol 50 MG Tab PO PRN (22:10)
[2023-04-26] MEDS: DULoxetine 30 MG Cap PO SCH (08:00)
[2023-04-26] MEDS: Pantoprazole 40 MG Tab.CR PO SCH (08:00)
[2023-04-26] MEDS: Tamsulosin 0.4 MG Cap.ER PO SCH (08:01)
[2023-04-26] MEDS: ceFAZolin 2 GM Vial IVPUSH SCH ×3 (09:08→21:04)
[2023-04-26] MEDS: Heparin Sodium 100 Units/ML 3 ML Syringe IVPUSH SCH ×3 (09:08→21:04)
[2023-04-26] MEDS: Sodium Chloride 0.9% 10 ML Syringe FLUSH SCH ×3 (09:09→21:04)
[2023-04-26] MEDS: traMADol 50 MG Tab PO PRN ×2 (12:16→22:33)
[2023-04-26] MEDS: Sodium Chloride 0.9% 10 ML Syringe FLUSH PRN (21:05)
[2023-04-26] MEDS: Cyclobenzaprine 10 MG Tab PO PRN (22:35)
[2023-04-26] MEDS: hydrOXYzine HCl 25 MG Tab PO PRN (22:35)
[2023-04-27] MEDS: Sodium Chloride 0.9% 10 ML Syringe FLUSH SCH ×3 (05:55→21:57)
[2023-04-27] MEDS: ceFAZolin 2 GM Vial IVPUSH SCH ×3 (05:55→21:57)
[2023-04-27] MEDS: Heparin Sodium 100 Units/ML 3 ML Syringe IVPUSH SCH ×3 (05:56→21:57)
[2023-04-27] MEDS: Sodium Chloride 0.9% 10 ML Syringe FLUSH PRN (05:56)
[2023-04-27] MEDS: Cyclobenzaprine 10 MG Tab PO PRN ×2 (06:02→22:11)
[2023-04-27] MEDS: DULoxetine 30 MG Cap PO SCH (08:28)
[2023-04-27] MEDS: Pantoprazole 40 MG Tab.CR PO SCH (08:28)
[2023-04-27] MEDS: Tamsulosin 0.4 MG Cap.ER PO SCH (08:28)
[2023-04-27] MEDS: traMADol 50 MG Tab PO PRN (22:10)
[2023-04-28] MEDS: ceFAZolin 2 GM Vial IVPUSH SCH ×3 (05:36→22:00)
[2023-04-28] MEDS: Heparin Sodium 100 Units/ML 3 ML Syringe IVPUSH SCH ×3 (05:37→22:00)
[2023-04-28] MEDS: Sodium Chloride 0.9% 10 ML Syringe FLUSH SCH ×3 (05:56→22:00)
[2023-04-28] MEDS: CYCLOBENZAPRINE 10 MG PO PRN ×2 (13:35→22:03)
[2023-04-29] MEDS: Sodium Chloride 0.9% 10 ML Syringe FLUSH SCH ×3 (04:52→21:20)
[2023-04-29] MEDS: ceFAZolin 2 GM Vial IVPUSH SCH ×3 (04:52→21:20)
[2023-04-29] MEDS: Heparin Sodium 100 Units/ML 3 ML Syringe IVPUSH SCH ×3 (04:52→21:20)
[2023-04-29] MEDS: CYCLOBENZAPRINE 10 MG PO PRN ×2 (12:20→21:18)
[2023-04-30] MEDS: ceFAZolin 2 GM Vial IVPUSH SCH ×3 (05:29→21:11)
[2023-04-30] MEDS: Sodium Chloride 0.9% 10 ML Syringe FLUSH SCH ×3 (05:30→21:12)
[2023-04-30] MEDS: Heparin Sodium 100 Units/ML 3 ML Syringe IVPUSH SCH ×3 (05:30→21:11)
[2023-04-30] MEDS: Acetaminophen 500 MG Tab PO PRN (21:11)
[2023-04-30] MEDS: CYCLOBENZAPRINE 10 MG PO PRN (21:13)
[2023-05-01] MEDS: Sodium Chloride 0.9% 10 ML Syringe FLUSH SCH ×3 (05:23→21:14)
[2023-05-01] MEDS: ceFAZolin 2 GM Vial IVPUSH SCH ×3 (05:23→21:14)
[2023-05-01] MEDS: Heparin Sodium 100 Units/ML 3 ML Syringe IVPUSH SCH ×3 (05:24→21:14)
[2023-05-01 06:54] LABS: HEMATOCRIT 44.6 % (40.0-52.0); HEMOGLOBIN 14.6 g/dL (14.0-18.0); MEAN CORPUSCULAR HEMOGLOBIN 30.5 pg (26.0-32.0); MEAN CORPUSCULAR HGB CONC 32.7 g/dL (32.0-36.0); MEAN CORPUSCULAR VOLUME 93.3 fL (78.0-93.0); RED BLOOD CELL COUNT 4.78 x10^6/uL (4.5-6.0); WHITE BLOOD CELL COUNT,WBC 6.7 x10^3/uL (4.0-10.0)
[2023-05-01 07:19] LABS: C-REACTIVE PROTEIN 0.16 mg/dL (<=0.30); CREATININE 0.8 mg/dL (0.70-1.30); EST CRCL DRUG DOSING (CG) 125.29 mL/min
[2023-05-01] MEDS: CYCLOBENZAPRINE 10 MG PO PRN ×2 (13:10→22:52)
[2023-05-01] MEDS: Acetaminophen 500 MG Tab PO PRN (22:52)
[2023-05-02] MEDS: Heparin Sodium 100 Units/ML 3 ML Syringe IVPUSH SCH ×3 (05:41→21:55)
[2023-05-02] MEDS: ceFAZolin 2 GM Vial IVPUSH SCH ×3 (05:41→21:55)
[2023-05-02] MEDS: Sodium Chloride 0.9% 10 ML Syringe FLUSH SCH ×3 (05:43→21:55)
[2023-05-02] MEDS: CYCLOBENZAPRINE 10 MG PO PRN ×2 (12:32→21:58)
[2023-05-03] MEDS: Heparin Sodium 100 Units/ML 3 ML Syringe IVPUSH SCH ×3 (05:09→21:14)
[2023-05-03] MEDS: Sodium Chloride 0.9% 10 ML Syringe FLUSH SCH ×3 (05:09→21:14)
[2023-05-03] MEDS: ceFAZolin 2 GM Vial IVPUSH SCH ×3 (05:09→21:14)
[2023-05-03] MEDS: CYCLOBENZAPRINE 10 MG PO PRN ×2 (08:55→21:51)
[2023-05-04] MEDS: ceFAZolin 2 GM Vial IVPUSH SCH ×3 (05:29→21:22)
[2023-05-04] MEDS: Sodium Chloride 0.9% 10 ML Syringe FLUSH SCH ×3 (05:30→21:23)
[2023-05-04] MEDS: Heparin Sodium 100 Units/ML 3 ML Syringe IVPUSH SCH ×3 (05:30→21:22)
[2023-05-04] MEDS: CYCLOBENZAPRINE 10 MG PO PRN ×2 (08:45→21:13)
[2023-05-05] MEDS: ceFAZolin 2 GM Vial IVPUSH SCH ×3 (05:38→21:33)
[2023-05-05] MEDS: Sodium Chloride 0.9% 10 ML Syringe FLUSH SCH ×3 (05:38→21:32)
[2023-05-05] MEDS: Heparin Sodium 100 Units/ML 3 ML Syringe IVPUSH SCH ×3 (05:38→21:33)
[2023-05-05] MEDS: CYCLOBENZAPRINE 10 MG PO PRN ×2 (05:39→21:29)
[2023-05-06] MEDS: Sodium Chloride 0.9% 10 ML Syringe FLUSH SCH ×3 (05:47→22:00)
[2023-05-06] MEDS: Heparin Sodium 100 Units/ML 3 ML Syringe IVPUSH SCH ×3 (05:48→22:00)
[2023-05-06] MEDS: ceFAZolin 2 GM Vial IVPUSH SCH ×3 (05:48→22:00)
[2023-05-06] MEDS: CYCLOBENZAPRINE 10 MG PO PRN (22:15)
[2023-05-07] MEDS: Sodium Chloride 0.9% 10 ML Syringe FLUSH SCH ×3 (05:29→21:42)
[2023-05-07] MEDS: Heparin Sodium 100 Units/ML 3 ML Syringe IVPUSH SCH ×3 (05:30→21:41)
[2023-05-07] MEDS: ceFAZolin 2 GM Vial IVPUSH SCH ×3 (05:30→21:41)
[2023-05-07] MEDS: CYCLOBENZAPRINE 10 MG PO PRN (21:43)
[2023-05-08] MEDS: ceFAZolin 2 GM Vial IVPUSH SCH ×3 (05:02→21:37)
[2023-05-08] MEDS: Sodium Chloride 0.9% 10 ML Syringe FLUSH SCH ×3 (05:02→21:37)
[2023-05-08] MEDS: Heparin Sodium 100 Units/ML 3 ML Syringe IVPUSH SCH ×3 (05:02→21:37)
[2023-05-08] MEDS: Sodium Chloride 0.9% 10 ML Syringe FLUSH PRN (06:36)
[2023-05-08] MEDS: Heparin Sodium 100 Units/ML 3 ML Syringe IVPUSH PRN (06:36)
[2023-05-08 06:58] LABS: HEMATOCRIT 43.4 % (40.0-52.0); HEMOGLOBIN 14.2 g/dL (14.0-18.0); MEAN CORPUSCULAR HEMOGLOBIN 30.7 pg (26.0-32.0); MEAN CORPUSCULAR HGB CONC 32.7 g/dL (32.0-36.0); MEAN CORPUSCULAR VOLUME 93.7 fL (78.0-93.0); RED BLOOD CELL COUNT 4.63 x10^6/uL (4.5-6.0); WHITE BLOOD CELL COUNT,WBC 6.9 x10^3/uL (4.0-10.0)
[2023-05-08 07:17] LABS: C-REACTIVE PROTEIN 0.19 mg/dL (<=0.30); CREATININE 0.8 mg/dL (0.70-1.30); EST CRCL DRUG DOSING (CG) 125.29 mL/min
[2023-05-08] MEDS: CYCLOBENZAPRINE 10 MG PO PRN (21:34)
[2023-05-08] MEDS: Acetaminophen 500 MG Tab PO PRN (21:50)
[2023-05-09] MEDS: Sodium Chloride 0.9% 10 ML Syringe FLUSH SCH ×3 (05:32→21:31)
[2023-05-09] MEDS: Heparin Sodium 100 Units/ML 3 ML Syringe IVPUSH SCH ×3 (05:32→21:31)
[2023-05-09] MEDS: ceFAZolin 2 GM Vial IVPUSH SCH ×3 (05:32→21:31)
[2023-05-09] MEDS: CYCLOBENZAPRINE 10 MG PO PRN (21:29)
[2023-05-10] MEDS: ceFAZolin 2 GM Vial IVPUSH SCH ×3 (05:22→21:24)
[2023-05-10] MEDS: Sodium Chloride 0.9% 10 ML Syringe FLUSH SCH ×3 (05:22→21:20)
[2023-05-10] MEDS: Heparin Sodium 100 Units/ML 3 ML Syringe IVPUSH SCH ×3 (05:26→21:32)
[2023-05-10] MEDS: Sodium Chloride 0.9% 10 ML Syringe FLUSH PRN (21:28)
[2023-05-10] MEDS: CYCLOBENZAPRINE 10 MG PO PRN (21:34)
[2023-05-11] MEDS: Sodium Chloride 0.9% 10 ML Syringe FLUSH SCH ×3 (05:00→21:23)
[2023-05-11] MEDS: ceFAZolin 2 GM Vial IVPUSH SCH ×3 (05:04→21:27)
[2023-05-11] MEDS: Sodium Chloride 0.9% 10 ML Syringe FLUSH PRN ×2 (05:08→21:30)
[2023-05-11] MEDS: Heparin Sodium 100 Units/ML 3 ML Syringe IVPUSH SCH ×3 (05:12→21:34)
[2023-05-11] MEDS: CYCLOBENZAPRINE 10 MG PO PRN (21:39)
[2023-05-12] MEDS: Sodium Chloride 0.9% 10 ML Syringe FLUSH SCH ×3 (05:03→21:20)
[2023-05-12] MEDS: ceFAZolin 2 GM Vial IVPUSH SCH ×3 (05:07→21:25)
[2023-05-12] MEDS: Sodium Chloride 0.9% 10 ML Syringe FLUSH PRN ×3 (05:11→21:29)
[2023-05-12] MEDS: Heparin Sodium 100 Units/ML 3 ML Syringe IVPUSH SCH ×3 (05:15→21:33)
[2023-05-12] MEDS: CYCLOBENZAPRINE 10 MG PO PRN (21:44)
[2023-05-13] MEDS: Sodium Chloride 0.9% 10 ML Syringe FLUSH SCH ×3 (05:03→22:13)
[2023-05-13] MEDS: ceFAZolin 2 GM Vial IVPUSH SCH ×3 (05:07→22:16)
[2023-05-13] MEDS: Sodium Chloride 0.9% 10 ML Syringe FLUSH PRN ×3 (05:11→22:20)
[2023-05-13] MEDS: Heparin Sodium 100 Units/ML 3 ML Syringe IVPUSH SCH ×3 (05:15→22:24)
[2023-05-13] MEDS: CYCLOBENZAPRINE 10 MG PO PRN (08:28)
[2023-05-14] MEDS: Sodium Chloride 0.9% 10 ML Syringe FLUSH SCH ×3 (05:03→22:25)
[2023-05-14] MEDS: ceFAZolin 2 GM Vial IVPUSH SCH ×3 (05:07→22:29)
[2023-05-14] MEDS: Sodium Chloride 0.9% 10 ML Syringe FLUSH PRN ×3 (05:11→22:33)
[2023-05-14] MEDS: Heparin Sodium 100 Units/ML 3 ML Syringe IVPUSH SCH ×3 (05:15→22:37)
[2023-05-14] MEDS: CYCLOBENZAPRINE 10 MG PO PRN (22:44)
[2023-05-15] MEDS: Sodium Chloride 0.9% 10 ML Syringe FLUSH SCH ×3 (05:02→21:48)
[2023-05-15] MEDS: ceFAZolin 2 GM Vial IVPUSH SCH ×3 (05:06→21:52)
[2023-05-15] MEDS: Sodium Chloride 0.9% 10 ML Syringe FLUSH PRN ×2 (05:10→21:56)
[2023-05-15] MEDS: Heparin Sodium 100 Units/ML 3 ML Syringe IVPUSH SCH ×3 (05:14→22:00)
[2023-05-15] MEDS: Heparin Sodium 100 Units/ML 3 ML Syringe IVPUSH PRN (07:30)
[2023-05-15 08:19] LABS: HEMATOCRIT 45.1 % (40.0-52.0); HEMOGLOBIN 14.9 g/dL (14.0-18.0); MEAN CORPUSCULAR HEMOGLOBIN 30.8 pg (26.0-32.0); MEAN CORPUSCULAR VOLUME 93.2 fL (78.0-93.0); RED BLOOD CELL COUNT 4.84 x10^6/uL (4.5-6.0); WHITE BLOOD CELL COUNT,WBC 6.6 x10^3/uL (4.0-10.0)
[2023-05-15 08:27] LABS: C-REACTIVE PROTEIN 0.16 mg/dL (<=0.30); CREATININE 0.8 mg/dL (0.70-1.30); EST CRCL DRUG DOSING (CG) 125.29 mL/min
[2023-05-16] MEDS: Sodium Chloride 0.9% 10 ML Syringe FLUSH SCH ×3 (05:24→21:19)
[2023-05-16] MEDS: ceFAZolin 2 GM Vial IVPUSH SCH ×3 (05:28→21:23)
[2023-05-16] MEDS: Sodium Chloride 0.9% 10 ML Syringe FLUSH PRN ×2 (05:32→21:27)
[2023-05-16] MEDS: Heparin Sodium 100 Units/ML 3 ML Syringe IVPUSH SCH ×3 (05:36→21:31)
[2023-05-16] MEDS: CYCLOBENZAPRINE 10 MG PO PRN ×2 (13:14→21:38)
[2023-05-17] MEDS: Sodium Chloride 0.9% 10 ML Syringe FLUSH SCH ×3 (05:00→21:28)
[2023-05-17] MEDS: ceFAZolin 2 GM Vial IVPUSH SCH ×3 (05:04→21:27)
[2023-05-17] MEDS: Sodium Chloride 0.9% 10 ML Syringe FLUSH PRN (05:08)
[2023-05-17] MEDS: Heparin Sodium 100 Units/ML 3 ML Syringe IVPUSH SCH ×3 (05:12→21:36)
[2023-05-17] MEDS: CYCLOBENZAPRINE 10 MG PO PRN ×2 (12:47→21:32)
[2023-05-17] MEDS ORDERED: Gadoteridol 279.3 MG/ML 20 ML SDV ONE (13:50)
[2023-05-18] MEDS: Sodium Chloride 0.9% 10 ML Syringe FLUSH SCH ×3 (05:25→21:55)
[2023-05-18] MEDS: ceFAZolin 2 GM Vial IVPUSH SCH ×3 (05:26→21:55)
[2023-05-18] MEDS: Heparin Sodium 100 Units/ML 3 ML Syringe IVPUSH SCH ×3 (05:30→21:55)
[2023-05-18] MEDS: CYCLOBENZAPRINE 10 MG PO PRN (22:00)
[2023-05-19] MEDS: ceFAZolin 2 GM Vial IVPUSH SCH ×3 (05:28→21:29)
[2023-05-19] MEDS: Sodium Chloride 0.9% 10 ML Syringe FLUSH SCH ×3 (05:28→21:29)
[2023-05-19] MEDS: Heparin Sodium 100 Units/ML 3 ML Syringe IVPUSH SCH ×3 (05:28→21:30)
[2023-05-19] MEDS: Sodium Chloride 0.9% 10 ML Syringe FLUSH PRN (12:51)
[2023-05-19] MEDS: CYCLOBENZAPRINE 10 MG PO PRN (21:41)
[2023-05-20] MEDS: ceFAZolin 2 GM Vial IVPUSH SCH ×3 (05:36→21:13)
[2023-05-20] MEDS: Sodium Chloride 0.9% 10 ML Syringe FLUSH SCH ×3 (05:36→21:12)
[2023-05-20] MEDS: Heparin Sodium 100 Units/ML 3 ML Syringe IVPUSH SCH ×3 (05:36→21:13)
[2023-05-20] MEDS: CYCLOBENZAPRINE 10 MG PO PRN ×2 (09:52→21:10)
[2023-05-21] MEDS: Heparin Sodium 100 Units/ML 3 ML Syringe IVPUSH SCH ×3 (05:20→21:10)
[2023-05-21] MEDS: ceFAZolin 2 GM Vial IVPUSH SCH ×3 (05:20→21:10)
[2023-05-21] MEDS: Sodium Chloride 0.9% 10 ML Syringe FLUSH SCH ×3 (05:20→21:10)
[2023-05-21] MEDS: CYCLOBENZAPRINE 10 MG PO PRN (21:23)
[2023-05-22] MEDS: ceFAZolin 2 GM Vial IVPUSH SCH ×3 (05:05→21:53)
[2023-05-22] MEDS: Heparin Sodium 100 Units/ML 3 ML Syringe IVPUSH SCH ×3 (05:05→21:54)
[2023-05-22] MEDS: Sodium Chloride 0.9% 10 ML Syringe FLUSH SCH ×3 (05:05→21:53)
[2023-05-22] MEDS: Sodium Chloride 0.9% 10 ML Syringe FLUSH PRN ×2 (07:53→13:14)
[2023-05-22] MEDS: Heparin Sodium 100 Units/ML 3 ML Syringe IVPUSH PRN (07:57)
[2023-05-22 08:00] LABS: HEMATOCRIT 47.2 % (40.0-52.0); HEMOGLOBIN 15.6 g/dL (14.0-18.0); MEAN CORPUSCULAR HEMOGLOBIN 30.5 pg (26.0-32.0); MEAN CORPUSCULAR HGB CONC 33.1 g/dL (32.0-36.0); MEAN CORPUSCULAR VOLUME 92.2 fL (78.0-93.0); RED BLOOD CELL COUNT 5.12 x10^6/uL (4.5-6.0); WHITE BLOOD CELL COUNT,WBC 7.1 x10^3/uL (4.0-10.0)
[2023-05-22 08:15] LABS: C-REACTIVE PROTEIN 0.32 mg/dL (<=0.30); CREATININE 0.8 mg/dL (0.70-1.30); EST CRCL DRUG DOSING (CG) 125.29 mL/min
[2023-05-22] MEDS: CYCLOBENZAPRINE 10 MG PO PRN (22:09)
[2023-05-23] MEDS: Heparin Sodium 100 Units/ML 3 ML Syringe IVPUSH SCH ×3 (05:47→21:19)
[2023-05-23] MEDS: ceFAZolin 2 GM Vial IVPUSH SCH ×3 (05:47→21:19)
[2023-05-23] MEDS: Sodium Chloride 0.9% 10 ML Syringe FLUSH SCH ×3 (05:47→21:19)
[2023-05-23] MEDS: CYCLOBENZAPRINE 10 MG PO PRN (21:18)
[2023-05-24] MEDS: Sodium Chloride 0.9% 10 ML Syringe FLUSH SCH ×2 (05:46→14:56)
[2023-05-24] MEDS: ceFAZolin 2 GM Vial IVPUSH SCH ×2 (05:47→14:55)
[2023-05-24] MEDS: Heparin Sodium 100 Units/ML 3 ML Syringe IVPUSH SCH ×2 (05:47→14:55)
[2023-05-24] MEDS: CYCLOBENZAPRINE 10 MG PO PRN (08:38)
== END 2023-05-24 17:20 | disposition home or self-care (01) | DRG 96 ==
LOC: VM.MS 14:46
PROVIDERS: ADMIT Nurse Practitioner Family; ATTEND Nurse Practitioner Family
DX: G06.2 Extradural and subdural abscess, unspecified (principal); B95.61 Methicillin susceptible Staphylococcus aureus infection as the cause of diseases classified elsewhere; F41.9 Anxiety disorder, unspecified; F32.A Depression, unspecified; F15.90 Other stimulant use, unspecified, uncomplicated; R33.9 Retention of urine, unspecified; Z90.89 Acquired absence of other organs; Z98.890 Other specified postprocedural states; Z88.5 Allergy status to narcotic agent; Z79.52 Long term (current) use of systemic steroids; Z79.899 Other long term (current) drug therapy; Z87.891 Personal history of nicotine dependence
CPT/HCPCS: 36415; 51701; 72156; 80305-QW; 82565; 84450; 85027; 85652; 86140; 87070; 97110-GP; 97140-GP; 97161-GP; 97164-GP; 97165-GO; 97535-GO; A9270-GY; A9579; C1758; J0690; J1642; J3490

== ENCOUNTER 2023-12-06 03:55 | Emergency (ER) | payer MEDICAID ==
[2023-12-06] MEDS: Proparacaine 0.5% Ophth Soln 15 ML Bottle EYERT PRN (04:14)
[2023-12-06] MEDS: Fluorescein 1 MG Ophth Strip EYERT ONE (04:14)
[2023-12-06] MEDS: Ciprofloxacin 0.3% Ophth Soln 2.5 ML Bottle EYERT ONE (04:30)
== END 2023-12-06 04:35 | disposition home or self-care (01) ==
LOC: VM.ED 03:55
DX: S05.01XA Injury of conjunctiva and corneal abrasion without foreign body, right eye, initial encounter (principal); F17.210 Nicotine dependence, cigarettes, uncomplicated; Z88.5 Allergy status to narcotic agent; Z79.899 Other long term (current) drug therapy; W45.8XXA Other foreign body or object entering through skin, initial encounter; Y93.89 Activity, other specified
CPT/HCPCS: 99283; A9270-GY; J3490